=== PATIENT | male | born 1985 | race Caucasian/White ===

== ENCOUNTER → 2020-03-18 | Outpatient (CLI) | payer BC, OTHER | LOC: M LABSMTC 14:19 | PROVIDERS: ATTEND Pediatrics | DX: Z11.59 Encounter for screening for other viral diseases (principal) | CPT/HCPCS: C9803; U0003 ==

== ENCOUNTER → 2020-04-29 | Outpatient (REF) | payer OTHER | LOC: M LAB REF 10:35 | PROVIDERS: ATTEND Physician Assistant | DX: H60.311 Diffuse otitis externa, right ear (principal) ==

== ENCOUNTER → 2020-12-05 | Outpatient (CLI) | payer BC, OTHER ==
--- NOTE | 2020-12-05 17:31 | REP ---
INDICATION: SPRAIN OF LT RIBS. COMPARISON: None. TECHNIQUE: Six views including PA chest. FINDINGS: PA chest radiograph is normal. There is no evidence of pneumothorax or hydrothorax. Mediastinum is not widened. Heart size is normal. Lung jorgensen are clear. Multiple views of the left ribcage demonstrate intact left ribs without evidence of rib fracture or bony destructive lesion. IMPRESSION: Negative left rib radiographs. <Electronically signed by Hong Jones > 12/05/20 [id number]
== END ==
LOC: M ADAMS 15:28
PROVIDERS: ATTEND Nurse Practitioner Family
DX: S23.41XA Sprain of ribs, initial encounter (principal); X58.XXXA Exposure to other specified factors, initial encounter; Y92.9 Unspecified place or not applicable; Y93.9 Activity, unspecified; Y99.9 Unspecified external cause status

== ENCOUNTER → 2021-08-19 | Outpatient (REF) | payer OTHER, BC | LOC: M SMT 13:23 | PROVIDERS: ATTEND Urology | DX: Z30.2 Encounter for sterilization (principal) ==